=== PATIENT | male | born 1995 | race American Indian/Alaskan Native ===

== ENCOUNTER 2022-05-29 20:47 | Day surgery (SDC) | payer OTHER ==
[~2022-05-29 20:47] MED LIST: PIPERACILLIN/TAZOBACTAM 3.375 GM in SODIUM CHLORIDE 0.9% MINIBAG 100 ML IV ONE
--- NOTE | 2022-05-29 21:17 | ED Physician Documentation ---
PD HPI ABD PAIN - Stated complaint Stated Complaint: ABD PAIN/D/N - Chief complaint Chief Complaint: Abd Pain - Additional information Additional information: 26-year-old male presents with right lower quadrant pain since last night. He states it started around the umbilicus and is now more in the right lower quadrant though still somewhat around the umbilicus. It is described as sharp and uncomfortable and worse with palpation or when they do over bumps in the road today. He has tried numerous different medications throughout the day including Tums, naproxen, and some herbal teas without improvement in his symptoms. He has had associated diarrhea and a couple of occasions, no nausea or vomiting and has been able to tolerate p.o. He last ate a sandwich about 4 PM and this did not seem to have any effect on the abdominal pain. Has not had a fever or chills to his knowledge. He had some mild dysuria yesterday but none today when he provided a urine sample. He denies any scrotal pain or swelling or penile discharge. No history of abdominal surgeries or abdominal pain. Patient does note a history of chronic back pain secondary to scoliosis for which he takes naproxen on a regular basis.He has no other chronic medical co nditions and is not on any other medication. Review of Systems Constitutional: reports: Reviewed and negative, Other (Other systems reviewed and are negative except as described in HPI) PD PAST MEDICAL HISTORY - Past Medical History Past Medical History: Yes Musculoskeletal: Scoliosis, Chronic back pain - Present Medications Home Medications: Ambulatory Orders Medication Instructions Recorded Confirmed No Known Home Medications 05/29/22 05/29/22 - Allergies Allergies/Adverse Reactions: Allergies Allergy/AdvReac Type Severity Reaction Status Date / Time No Known Drug Allergies Allergy Verified 05/29/22 20:59 PD ED PE NORMAL - Vitals Vital signs reviewed: Yes - General General: Alert and oriented X 3, No acute distress, Well developed/nourished - HEENT HEENT: Atraumatic, Pharynx benign - Neck Neck: Supple, no meningeal sign, No JVD - Cardiac Cardiac: RRR, No murmur, No gallop, No rub - Respiratory Respiratory: No respiratory distress, Clear bilaterally - Abdomen Abdomen: Normal bowel sounds, Soft, Non distended, Other (Tenderness right lower quadrant, no other areas of abdominal tenderness.) - Back Back: No CVA TTP, No spinal TTP - Derm Derm: Normal color, Warm and dry, No rash - Neuro Neuro: Alert and oriented X 3 Eye Opening: Spontaneous Motor: Obeys Commands Verbal: Oriented GCS Score: 15 Results - Vitals Vitals: Vital Signs - 24 hr 05/29/22 21:00 Temperature 37.0 C Heart Rate 64 Respiratory 16 Rate Blood Pressure 124/57 L O2 Saturation 100 Oxygen O2 Source Room air - Labs Labs: Laboratory Tests 05/29/22 05/29/22 05/29/22 21:04 21:10 21:10 WBC 10.9 H RBC 4.66 L Hgb 12.7 L Hct 39.4 L MCV 84.5 MCH 27.3 MCHC 32.2 RDW 12.4 Plt Count 171 MPV 10.3 Neut # (Auto) 7.2 H Lymph # (Auto) 2.8 Bent # (Auto) 0.7 Eos # (Auto) 0.1 Baso # (Auto) 0.1 Absolute Nucleated RBC 0.00 Nucleated RBC % 0.0 Sodium 137 Potassium 3.9 Chloride 100 L Carbon Dioxide 28 Anion Gap 9.0 BUN 11 Creatinine 0.9 Estimated GFR (MDRD) 101 Glucose 94 Calcium 9.5 Total Bilirubin 0.9 AST 23 ALT 30 Alkaline Phosphatase 54 Total Protein 7.7 Albumin 4.5 Globulin 3.2 Albumin/Globulin Ratio 1.4 Lipase 28 Urine Color YELLOW Urine Clarity HAZY Urine pH 7.5 Ur Specific [place] 1.015 Urine Protein NEGATIVE Urine Glucose (UA) NEGATIVE Urine Ketones NEGATIVE Urine Occult Blood NEGATIVE Urine Nitrite NEGATIVE Urine Bilirubin NEGATIVE Urine Urobilinogen 0.2 (NORMAL) Ur Leukocyte Esterase NEGATIVE Urine RBC None Seen Urine WBC 0-3 Ur Squamous Epith Cells FEW Squamous Urine Bacteria None Seen Ur Microscopic Review INDICATED Urine Culture Comments NOT INDICATED PD Medical Decision Making - ED course Complexity details: reviewed results, re-evaluated patient, considered differential, d/w patient ED course: This is a generally healthy 26-year-old male who presented with right lower quadrant abdominal pain since yesterday evening with associated Diarrhea, no nausea vomiting or fever. Differentials considered included appendicitis, viral gastroenteritis, urinary tract infection, colitis. We obtained labs which are largely reassuring, his white blood cell count is only slightly elevated at 10.9. His CMP is essentially normal. Urinalysis negative for signs of infection. It he patient does have reproducible tenderness at McBurney's point and suspicion remains for an acute appendicitis despite largely reassuring labs therefore we will proceed with a CT scan to evaluate. The patient is to remain n.p.o., he last ate at [address] scan does show an appendicitis, we will contact surgery. At this time the patient remained stable and will be signed out to Dr. Rosario pending CT results.
[2022-05-29 21:18] LABS: BASOPHILS # (AUTO) 0.1 10^3/uL (0.0-0.1); BASOPHILS % (AUTO) 0.6 %; EOSINOPHILS # (AUTO) 0.1 10^3/uL (0.0-0.7); EOSINOPHILS % (AUTO) 0.9 %; HCT - HEMATOCRIT 39.4 % (42.0-52.0); HGB - HEMOGLOBIN 12.7 g/dL (14.0-18.0); LYMPHOCYTES # (AUTO) 2.8 10^3/uL (1.5-3.5); LYMPHOCYTES % (AUTO) 25.4 %; MEAN CORPUSCULAR HEMOGLOBIN 27.3 pg (27.0-31.0); MEAN CORPUSCULAR HGB CONC 32.2 g/dL (32.0-36.0); MEAN CORPUSCULAR VOLUME 84.5 fL (80.0-94.0); MEAN PLATELET VOLUME 10.3 fL (7.4-11.4); MONOCYTES # (AUTO) 0.7 10^3/uL (0.0-1.0); MONOCYTES % (AUTO) 6.7 %; NEUTROPHILS # (AUTO) 7.2 10^3/uL (1.5-6.6); NEUTROPHILS % (AUTO) 66.2 %; PLT - PLATELET COUNT 171 10^3/uL (130-450); RED BLOOD COUNT 4.66 10^6/uL (4.70-6.10); RED CELL DISTRIBUTION WIDTH 12.4 % (12.0-15.0); WHITE BLOOD COUNT 10.9 x10^3/uL (4.8-10.8)
[2022-05-29 21:20] LABS: BILIRUBIN,URINE NEGATIVE (NEGATIVE); GLUCOSE, URINE (UA) NEGATIVE (NEGATIVE); KETONES,URINE (UA) NEGATIVE (NEGATIVE); LEUKOCYTE ESTERASE, URINE NEGATIVE (NEGATIVE); NITRITE,URINE NEGATIVE (NEGATIVE); OCCULT BLOOD,URINE NEGATIVE (NEGATIVE); PH,URINE 7.5 PH (5.0-7.5); PROTEIN,URINE NEGATIVE (NEGATIVE); UROBILINOGEN,URINE 0.2 (NORMAL) E.U./dL (NORMAL)
[2022-05-29 21:22] LABS: CLARITY,URINE HAZY (CLEAR)
[2022-05-29 21:30] LABS: ALBUMIN 4.5 g/dL (3.2-5.5); ALBUMIN/GLOBULIN RATIO 1.4 (1.0-2.2); BILIRUBIN,TOTAL 0.9 mg/dL (0.2-1.0); CALCIUM 9.5 mg/dL (8.5-10.3); CREATININE 0.9 mg/dL (0.6-1.2); POTASSIUM 3.9 mmol/L (3.5-5.0); TOTAL PROTEIN 7.7 g/dL (6.7-8.2)
[2022-05-29 21:32] LABS: BACTERIA,URINE None Seen /HPF (None Seen); RBC,URINE None Seen /HPF (0-5); SQUAMOUS EPITHELIAL CELL,UR FEW Squamous (<= Few); WBC,URINE 0-3 /HPF (0-3)
[2022-05-29] MEDS ORDERED: iohexoL-300 100 ML VIAL ONE (21:42)
[2022-05-29] MEDS ORDERED: iohexoL-300 100 ML VIAL IVP ONE (22:21)
--- NOTE | 2022-05-29 22:56 | CT Report ---
PROCEDURE: ABDOMEN/PELVIS W INDICATIONS: RLQ pain, r/o appy please thx. CONTRAST: Omni 300 100ml TECHNIQUE: After the administration of intravenous contrast, 5 mm thick sections acquired from the diaphragms to the symphysis. 5 mm thick coronal and sagittal reformats were acquired. For radiation dose reducti on, the following was used: automated exposure control, adjustment of mA and/or kV according to edgar ent size. COMPARISON: None. FINDINGS: Image quality: Excellent. Lung bases: Unremarkable. Heart: Heart is normal in size. ABDOMEN: Liver: No mass lesion. Gallbladder: Within normal limits without calcified gallstones. Biliary ducts: No biliary ductal dilatation. Pancreas: Unremarkable. Spleen: Normal in size. Adrenal Glands: No adrenal nodules. Kidneys and Ureters: No hydronephrosis. Stomach and Bowel: Stomach, small bowel loops, and colon are normal in caliber and wall thickness. T he appendix is distended, measuring up to 1.1 cm, with mild wall thickening and periappendiceal fat s tranding consistent with acute appendicitis. No periappendiceal abscess. There is colonic diverticulo sis without acute diverticulitis. Peritoneum:There is minimal free fluid in the pelvis. No free air. Ventral Wall: No hernia. Abdominal Nodes: No retroperitoneal or mesenteric adenopathy by size criteria. Vessels: Aorta and inferior vena cava are normal in size. PELVIS: Pelvic Organs: Unremarkable. Bladder:There is slight bladder wall thickening which may be due to incomplete distention.. Pelvic Nodes: No enlarged lymph nodes. Miscellaneous: No inguinal hernias. Bones: Visualized osseous structures demonstrate no suspicious lesions. IMPRESSION: 1. Acute appendicitis without definite evidence of perforation. 2. Minimal free fluid inferiorly in the pelvis is nonspecific but likely reactive. Findings discussed with Dr. Rosario on 05/29/2022 at 10:50 PM. Reviewed by: Eagle Gasca MD on 05/29/2022 10:54 PM PST Approved by: Eagle Gasca MD on 05/29/2022 10:54 PM PST Station ID: [id number]
[2022-05-29] MEDS ORDERED: PIPERACILLIN/TAZOBACTAM 3.375 GM in SODIUM CHLORIDE 0.9% MINIBAG 100 ML IV ONE (23:00)
[2022-05-29] MEDS ORDERED: MORPHINE 2 MG/ML CARPUJECT IVP STA (23:28)
[2022-05-29] MEDS ORDERED: ONDANSETRON 4 MG/2 ML VIAL IVP PRN (23:36)
[2022-05-29] MEDS ORDERED: SODIUM CHLORIDE FLUSH 0.9% 10 ML SYRINGE IVP PRN (23:36)
[2022-05-29] MEDS ORDERED: ONDANSETRON ODT 4 MG TABLET TL PRN (23:36)
[2022-05-29] MEDS ORDERED: ZOLPIDEM 5 MG TABLET PO PRN (23:36)
--- NOTE | 2022-05-29 23:36 | ED Physician Documentation ---
ED Addendum - Addendum Addendum: 05/29/22 23:32 I received signout on this patient from nurse practitioner Vinod; Please see her note for complete history and physical. CT abdomen/pelvis result was pending at end of her shift. Subsequently, the radiologist read the CAT scan as "acute appendicitis without definite evidence of perforation. Minimal free fluid inferiorly in the pelvis is nonspecific but likely reactive." I then went and introduced myself to the patient, informed him of the result of the CT, and performed a brief abdominal exam. He has significant right lower quadrant tenderness to minimal palpation. He has not received any pain medication yet, and when I offer pain medication, he declines, telling me "as long as I lie still, I am okay." I explained to him that he would need surgery to have the appendix removed. I discussed the case with Dr. Mari (on-call surgeon for [facility]). He plans to take the patient to the OR at 8:30 in the morning, and for now, he will enter orders into the computer and have the patient admitted to an observation bed in the hospital. I relayed this information to the patient. Patient is comfortable with this plan, he is now asking for something for the pain. He is given 4 mg morphine sulfate IV.
[2022-05-30] MEDS: D5.45NS W/20 MEQ KCL 1,000 ML IV SCH ×3 (01:10→17:17)
[2022-05-30] MEDS: SODIUM CHLORIDE FLUSH 0.9% 10 ML SYRINGE IVP SCH ×3 (01:11→18:28)
[2022-05-30] MEDS: ACETAMINOPHEN 325 MG TABLET PO PRN ×3 (01:19→17:17)
[2022-05-30] MEDS ORDERED: PIPERACILLIN/TAZOBACTAM 3.375 GM in SODIUM CHLORIDE 0.9% MINIBAG 100 ML IV SCH ×2 (03:00→05:00)
[2022-05-30] MEDS ORDERED: ROCURONIUM 50 MG/5 ML VIAL ONE (10:10)
[2022-05-30] MEDS ORDERED: PROPOFOL 200 MG/20 ML VIAL IVP ONE (10:10)
[2022-05-30] MEDS ORDERED: LIDOCAINE-MPF 2% 5 ML VIAL ONE (10:10)
[2022-05-30] MEDS ORDERED: fentaNYL 100 MCG/2 ML VIAL ONE (10:11)
[2022-05-30] MEDS ORDERED: MIDAZOLAM 2 MG/2 ML VIAL ONE (10:11)
--- NOTE | 2022-05-30 10:16 | ANESTHESIA ---
Pre-Anesthesia VS, & Labs - Diagnosis appendicitis - Procedure laparoscopic appendectomy Vital Signs: Temp Pulse Resp BP Pulse Ox O2 Flow Rate 36.8 C 63 18 105/45 L 100 05/30/22 08:00 05/30/22 08:00 05/30/22 08:00 05/30/22 08:00 05/30/22 08:00 Height: 5 ft 9 in Weight (kg): 97.069 kg Body Mass Index: 31.6 BMI Classification: Obese - NPO >8 hours - Lab Results Current Lab Results: Laboratory Tests 05/29/22 21:10: Sodium 137, Potassium 3.9, Chloride 100 L, Carbon Dioxide 28, Anion Gap 9.0, BUN 11, Creatinine 0.9, Estimated GFR (MDRD) 101, Glucose 94, Calcium 9.5, Total Bilirubin 0.9, AST 23, ALT 30, Alkaline Phosphatase 54, Total Protein 7.7, Albumin 4.5, Globulin 3.2, Albumin/Globulin Ratio 1.4, Lipase 28 05/29/22 21:10: WBC 10.9 H, RBC 4.66 L, Hgb 12.7 L, Hct 39.4 L, MCV 84.5, MCH 27.3, MCHC 32.2, RDW 12.4, Plt Count 171, MPV 10.3, Neut # (Auto) 7.2 H, Lymph # (Auto) 2.8, [place] # (Auto) 0.7, Eos # (Auto) 0.1, Baso # (Auto) 0.1, Absolute Nucleated RBC 0.00, Nucleated RBC % 0.0 Fish Bones: 05/29/22 21:10 05/29/22 21:10 Home Medications and Allergies Home Medications: Ambulatory Orders No Known Home Medications 05/29/22 Active Medications Acetaminophen (Acetaminophen 325 Mg Tablet) 650 mg PO Q4HR PRN PRN Reason: Pain 1 to 4, or Fever Last Admin: 05/30/22 01:19 Dose: 650 mg Potassium Chloride/Dextrose/Sod Cl (D5.45ns W/20 Meq Kcl) 1,000 mls @ 100 mls /hr IV .Q10H TIM Last Admin: 05/30/22 01:10 Dose: 100 mls/hr Piperacillin Sod/Tazobactam (Sod 3.375 gm/ Sodium Chloride) 100 mls @ 25 mls/hr IV Q8H TMI Last Admin: 05/30/22 04:57 Dose: 25 mls/hr Ondansetron HCl (Ondansetron Odt 4 Mg Tablet) 4 mg TL Q6HR PRN PRN Reason: Nausea / Vomiting Ondansetron HCl (Ondansetron 4 Mg/2 Ml Vial) 4 mg IVP Q6HR PRN PRN Reason: Nausea / Vomiting Oxycodone HCl (Oxycodone 5 Mg Tablet) 5 mg PO Q4HR PRN PRN Reason: Pain 8 to 10 Sodium Chloride (Sodium Chloride Flush 0.9% 10 Ml Syringe) 10 ml IVP PRN PRN PRN Reason: NEEDED PER PROVIDER ORDERS Sodium Chloride (Sodium Chloride Flush 0.9% 10 Ml Syringe) 10 ml IVP 0100,0900,1700 [facility] Last Admin: 05/30/22 01:11 Dose: 10 ml Zolpidem Tartrate (Zolpidem 5 Mg Tablet) 5 mg PO QPM PRN PRN Reason: Insomnia No Known Home Medications 05/29/22 Allergies/Adverse Reactions: Allergies Allergy/AdvReac Type Severity Reaction Status Date / Time No Known Drug Allergies Allergy Verified 05/29/22 20:59 Anes History & Medical History - Anesthetic History Anesthesia Complications: reports: No previous complications Family history of Anesthesia Complications: Denies - Medical History Cardiovascular: reports: None Pulmonary: reports: None Musculoskeletal: reports: Scoliosis, Chronic back pain Smoking Status: Never smoker History of Cancer?: No - Surgical History Eyes Ears Nose Throat (EENT): reports: Rhinoplasty Exam General: Alert, Oriented x3 Dental: WNL Mouth Opening: Greater than 4 Fingerbreadths Mallampati classification: II Thyromental Distance: greater than 6 cm Respiratory: Lungs clear Cardiovascular: Regular rate Plan Anesthesia Type: General Consent for Procedure(s) Verified and Reviewed: Yes Code Status: Attempt Resuscitation ASA classification: 1-Healthy patient Is this case an emergency?: No
[2022-05-30] MEDS ORDERED: fentaNYL 100 MCG/2 ML VIAL IVP PRN ×2 (10:18→12:41)
[2022-05-30] MEDS ORDERED: ONDANSETRON 4 MG/2 ML VIAL IVP PRN ×2 (10:18→12:41)
[2022-05-30] MEDS ORDERED: METOCLOPRAMIDE 10 MG/2 ML VIAL IVP PRN ×2 (10:18→12:41)
[2022-05-30] MEDS ORDERED: ATROPINE ABBOJECT 1 MG/10 ML SYRINGE IVP PRN ×2 (10:18→12:41)
[2022-05-30] MEDS ORDERED: ePHEDrine 50 MG/ML VIAL IVP PRN ×2 (10:18→12:41)
[2022-05-30] MEDS ORDERED: NALOXONE 0.4 MG/ML VIAL IVP PRN ×2 (10:18→12:41)
[2022-05-30] MEDS ORDERED: MORPHINE 2 MG/ML CARPUJECT IVP PRN ×2 (10:18→12:41)
[2022-05-30] MEDS ORDERED: HYDROmorphone 0.5 MG/0.5 ML SYRINGE IVP PRN ×2 (10:18→12:41)
--- NOTE | 2022-05-30 10:26 | HISTORY & PHYSICAL EXAMINATION ---
Chief Complaint - Chief Complaint Chief Complaint: right lower abdominal pain History of Present Illness - History Obtained From Records Reviewed: yes History obtained from: pt Exam Limitations: none - History of Present Illness HPI Comment/Other: right lower abdominal pain x 2 days. worse with movement. ct scan acute appendicitis History - Past Medical History Cardiovascular: reports: None Respiratory: reports: None Musculoskeletal: reports: Scoliosis, Chronic back pain - Past Surgical History HEENT: reports: Rhinoplasty - POLST Patient has POLST: No Meds/Allgy - Home Medications Home Medications: Ambulatory Orders Medication Instructions Recorded Confirmed No Known Home Medications 05/29/22 05/29/22 - Allergies Allergies/Adverse Reactions: Allergies Allergy/AdvReac Type Severity Reaction Status Date / Time No Known Drug Allergies Allergy Verified 05/29/22 20:59 Review of Systems - Other Findings Other Findings: 10 pt ros as above otherwise unremarkable Exam - Vital Signs Reviewed Vital Signs: Yes Vital Signs: Vital Signs x48h Temp Pulse Resp BP Pulse Ox 05/30/22 08:00 36.8 C 63 18 105/45 L 100 - Physical Exam General Appearance: positive: No acute distress, Alert Eyes Bilateral: positive: EOMI, No scleral icterus Neck: positive: No JVD, Trachea midline Respiratory: positive: No respiratory distress, Breath sounds nml Cardiovascular: positive: Regular rate & rhythm Abdomen: positive: Other (right lower quadrant tenderness with mild peritoneal s igns 2 cm umbilical hernia) Neurologic/Psychiatric: positive: Oriented x3 Conclusion/Plan - Problem List (1) Appendicitis Conclusion/Plan: plan appendectomy and umbilical hernia repair without mesh. parq held and consent obtained Qualifiers: Appendicitis type: acute appendicitis Acute appendicitis type: with localized peritonitis Appendicitis gangrene presence: without gangrene Appendicitis perforation presence: without perforation Appendicitis abscess presence: without abscess Qualified Code(s): K35.30 - Acute appendicitis with localized peritonitis, without perforation or gangrene - Lab Results Fish Bones: 05/29/22 21:10 05/29/22 21:10 - Diagnostic Imaging Results Diagnostic Imaging Results: positive: Read independently
[2022-05-30] MEDS ORDERED: LACTATED RINGERS 1,000 ML IV SCH ×2 (11:00→12:41)
[2022-05-30] MEDS ORDERED: ONDANSETRON 4 MG/2 ML VIAL ONE (11:10)
[2022-05-30] MEDS ORDERED: DEXAMETHASONE 4 MG/ML VIAL ONE (11:10)
[2022-05-30] MEDS ORDERED: BUPIVACAINE 0.25% PF 30 ML VIAL SUBQ ONE (11:14)
[2022-05-30] MEDS ORDERED: SUGAMMADEX 200 MG/2 ML VIAL IVP ONE (11:50)
[2022-05-30] MEDS ORDERED: LACTATED RINGERS 1,000 ML IV ONE (12:25)
--- NOTE | 2022-05-30 12:38 | OPERATIVE REPORT ---
Operative Report - General Procedure Date: 05/30/22 Planned Procedure: umbilcal hernia repair and laparoscopic appendectomy Pre-Op Diagnosis: appendicitis with peritonitis and umbilical hernia Procedure Performed: laparoscopic appendectomy and umbilical hernia repair Post Op Diagnosis: appendicitis with peritonitis and small incarcerated umbilical hernia - Procedure Note Primary Surgeon: rossana stephen Anesthesia Technique: General ET tube, Local Pathology: appendix Estimated Blood Loss (mL): 20 Drain/Tube Type: Other (none) Indications: appendicitis with peritonitis and painful umbilical hernia Findings: 1.5 cm umbilical hernia green pus in his pelvis suppurative appendicitis Complications: none - Other Other Information/Narrative: The patient was properly identified brought to the operating room and placed in supine position. Sequential compression devices and IV antibiotics were previously given or placed. He was prepped and draped in a sterile fashion. Local anesthetic was given to incision areas. A curvilinear infraumbilical incision was made. Umbilical skin was excised away from incarcerated preperitoneal adipose tissue. The preperitoneal adipose tissue was sharply mobilized and reduced. Fascia edge was further defined. The fascia was lifted upwards and abdomen entered with a Veress needle. CO2 was insufflated to a pressure of 15. A 12 mm Visiport trocar was placed with 30 degree scope. There was no evidence of injury from Veress needle or trocar placement. Under direct vision a 5 mm trocar was placed suprapubic and a 5 mm trocar was placed in the right upper quadrant. Bladder was half full. Care was taken to prevent injury from to the bladder. Green pus was present in the pelvis. The terminal ileum was adherent to the right abdominal sidewall. The right ureter was identified. The terminal ileum was carefully released with Metzenbaum cautery. This allowed access to the appendix. Appendix was further mobilized and retracted anterior. A plane was created between the mesoappendix and the appendix right at the cecum. Appendix was divided including a small portion of the cecum with a CANDY stapler. The mesoappendix was then divided with a vascular load. Hemostasis was assured. The abdomen was thoroughly irrigated. There was secure closure at the cecum. Trochars were removed under direct vision there were no apparent complications. Fascia at the umbilical site was closed with a running 0 Vicryl suture. Subcutaneous tissue was irrigated. Local skin was given. Umbilical skin was tacked back down to fascia with a 3-0 Vicryl. Epidermis was loosely reapproximated with buried interrupted 4-0 Monocryl. Dressings were applied. Patient was then straight cathed awakened and brought to recovery in good condition.
[2022-05-30] MEDS ORDERED: HYDROmorphone 0.5 MG/0.5 ML SYRINGE ONE (12:58)
[2022-05-30] MEDS: oxyCODONE 5 MG TABLET PO PRN ×3 (14:04→22:31)
--- NOTE | 2022-05-30 15:33 | ANESTHESIA POST OP EVALUATION ---
Anesthesia Post Eval - Post Anesthesia Eval Vitals: Last Vital Signs Temp 36.2 C L 05/30/22 13:10 Pulse 55 L 05/30/22 13:10 Resp 12 05/30/22 13:10 BP 106/65 05/30/22 13:10 Pulse Ox 98 05/30/22 13:10 O2 Flow Rate CV Function Including HR & BP: Stable Pain Control: Satisfactory Nausea & Vomiting: Negative Mental Status: Baseline Respiratory Status: Airway Patent Hydration Status: Satisfactory Anesthesia Complications: None
[2022-05-30] MEDS ORDERED: BENZOCAINE/MENTHOL LOZENGE MM PRN (17:04)
[2022-05-30] MEDS: PIPERACILLIN/TAZOBACTAM 3.375 GM in SODIUM CHLORIDE 0.9% MINIBAG 100 ML IV SCH (21:10)
[2022-05-31] MEDS: ACETAMINOPHEN 325 MG TABLET PO PRN ×3 (00:36→09:51)
[2022-05-31] MEDS: SODIUM CHLORIDE FLUSH 0.9% 10 ML SYRINGE IVP SCH ×2 (00:36→09:51)
[2022-05-31] MEDS: D5.45NS W/20 MEQ KCL 1,000 ML IV SCH (02:52)
[2022-05-31] MEDS: PIPERACILLIN/TAZOBACTAM 3.375 GM in SODIUM CHLORIDE 0.9% MINIBAG 100 ML IV SCH (04:59)
[2022-05-31] MEDS: oxyCODONE 5 MG TABLET PO PRN ×2 (08:26→12:30)
--- NOTE | 2022-05-31 11:02 | Discharge Plan ---
Discharge Plan Problem Reviewed?: Yes Disposition: Home, Self Care Prescriptions: oxyCODONE/ACET 5/325 [Percocet 5 mg/325 mg] 1 each PO Q6H PRN #25 tablet PRN Reason: Pain Activity Restrictions: Additional Comments (no lifting over 15 pounds for 3 weeks) Shower Restrictions: No Driving Restrictions: Yes (no driving while taking narcotics) Assessment: acute appendicitis No Smoking: If you smoke, Please STOP! Call for help. Follow-up with: MIRIAM CERDA DO [Primary Care Provider] - Salvatore Mari MD [Provider Admit Priv/Credential] -
--- NOTE | 2022-05-31 11:04 | DISCHARGE SUMMARY ---
"Discharge Summary Admit Date: 05/30/22 Discharge Date: 05/31/22 Discharging Provider: sebastien Condition at Discharge: Good Discharge Disposition: 01 Home, Self Care - DIAGNOSES Admission Diagnoses: acute appendicitis Discharge Diagnoses with Status of Each Condition: Acute appendicitis good condition - HPI History of Present Illness: The patient was admitted with acute appendicitis, he underwent a laparoscopic appendectomy. He was found to have some purulent material in the abdomen which was suctioned out. He was kept for 24 hours for IV antibiotics. - CONSULTS | PROCEDURES Procedures: Laparoscopic appendectomy - HOSPITAL COURSE Hospital Course: Routine course for appendicitis. - ALLERGIES Allergies/Adverse Reactions: Allergies Allergy/AdvReac Type Severity Reaction Status Date / Time No Known Drug Allergies Allergy Verified 05/29/22 20:59 - MEDICATIONS Home Medications: Ambulatory Orders Medication Instructions Recorded Confirmed oxyCODONE/ACET 5/325 [Percocet 5 1 each PO Q6H PRN #25 tablet 05/30/22 mg/325 mg] - PHYSICAL EXAM AT DISCHARGE General Appearance: positive: No acute distress Eyes Bilateral: positive: Normal inspection Neck: positive: Nml inspection Respiratory: positive: No respiratory distress Cardiovascular: positive: Regular rate & rhythm Abdomen: positive: Tenderness Skin: positive: Color nml Extremities: positive: Non-tender Neurologic/Psychiatric: positive: Oriented x3 - LABS Result Diagrams: 05/29/22 21:10 05/29/22 21:10 - SEPSIS Current Stage of Sepsis: Resolved"
[2022-05-31 12:31] VITALS: BP 123/67
== END 2022-05-31 12:50 | disposition home or self-care (01) ==
LOC: ED 20:47 → MS2 23:36 → SDS 23:36 → MS2 05-30 00:16 → SDS 05-31 12:50
PROVIDERS: ATTEND Specialist
PROC: 0DTJ4ZZ Resection of Appendix, Percutaneous Endoscopic Approach (ICD-10-PCS; principal; 2022-05-30 10:00)
DX: K35.30 Acute appendicitis with localized peritonitis, without perforation or gangrene (principal); Z20.822 Contact with and (suspected) exposure to COVID-19; E66.9 Obesity, unspecified; Z68.31 Body mass index [BMI] 31.0-31.9, adult; M41.9 Scoliosis, unspecified; M54.9 Dorsalgia, unspecified; G89.29 Other chronic pain; K42.0 Umbilical hernia with obstruction, without gangrene
CPT/HCPCS: 36415; 44970; 74177; 80053; 81001; 83690; 85025; 87635; 99284; 99285; A9270; J1170; J7120; Q9967; 81003; 87086